=== PATIENT | female | born 1930 | race Asian ===

== ENCOUNTER 2017-11-13 09:27 | Emergency (ER) | payer OTHER ==
[~2017-11-13] VITALS: Ht 152.4 cm; Wt 59.0 kg
[~2017-11-13 09:27] MED LIST: ACET80TA PO; AMLO-512 PO; CALC-719 PO; DICL25 PO; ESOM20CA31 PO; ESOM40CA PO; MECL-111 PO; MELO-107 PO; ROSU20 PO; ZOLP10TA7 PO
[2017-11-13] MEDS ORDERED: IBUPROFEN 600 MG TABLET PO ONE (10:00)
[2017-11-13] MEDS ORDERED: CYCLOBENZAPRINE HCL 10 MG TABLET PO ONE (10:00)
[2017-11-13] MEDS ORDERED: HYDROCODONE/ACETAMINOPHEN 5-325 MG TABLET PO ONE (10:00)
[2017-11-13 12:03] VITALS: BP 142/68
== END 2017-11-13 12:06 | disposition home or self-care (01) ==
LOC: EMS 09:29
DX: M54.5 Low back pain (principal); I10 Essential (primary) hypertension; E78.00 Pure hypercholesterolemia, unspecified
CPT/HCPCS: 99284

== ENCOUNTER 2017-12-04 12:42 | Emergency (ER) | payer OTHER ==
[~2017-12-04] VITALS: Ht 152.4 cm; Wt 58.2 kg
[2017-12-04 12:58] LABS: GLUCOSE,POINT OF CARE 156 MG/DL (70-110)
[2017-12-04] MEDS ORDERED: ACETAMINOPHEN/CODEINE 300-30 MG TABLET PO ONE (15:30)
[2017-12-04 15:50] VITALS: BP 117/66
== END 2017-12-04 15:51 | disposition home or self-care (01) ==
LOC: EMS 12:44
DX: S22.089A Unspecified fracture of T11-T12 vertebra, initial encounter for closed fracture (principal); S32.018A Other fracture of first lumbar vertebra, initial encounter for closed fracture; I10 Essential (primary) hypertension; E78.00 Pure hypercholesterolemia, unspecified; M19.90 Unspecified osteoarthritis, unspecified site; M43.16 Spondylolisthesis, lumbar region; M48.04 Spinal stenosis, thoracic region; M48.05 Spinal stenosis, thoracolumbar region; M48.061 Spinal stenosis, lumbar region without neurogenic claudication; X50.0XXA Overexertion from strenuous movement or load, initial encounter; Y93.89 Activity, other specified; Y92.89 Other specified places as the place of occurrence of the external cause; Y99.8 Other external cause status
CPT/HCPCS: 72131; 82962; 99284

== ENCOUNTER 2018-05-16 11:31 | Emergency (ER) | payer OTHER ==
[~2018-05-16] VITALS: Ht 154.9 cm; Wt 54.5 kg
[2018-05-16] MEDS ORDERED: [UNRECOGNIZED DRUG - CODE] TP (11:45)
[2018-05-16] MEDS ORDERED: ASPI-556 PO (11:45)
[2018-05-16] MEDS ORDERED: SITA50 PO (11:45)
[2018-05-16] MEDS ORDERED: KETOROLAC TROMETHAMINE 30 MG/ML VIAL IM ONE (16:00)
[2018-05-16] MEDS ORDERED: AmLODIPine BESYLATE 5 MG TABLET PO ONE (17:15)
[2018-05-16 17:54] VITALS: BP 180/97
== END 2018-05-16 17:58 | disposition home or self-care (01) ==
LOC: EMS 11:31
DX: M48.54XA Collapsed vertebra, not elsewhere classified, thoracic region, initial encounter for fracture (principal); M19.90 Unspecified osteoarthritis, unspecified site; E78.00 Pure hypercholesterolemia, unspecified; I10 Essential (primary) hypertension; Z79.82 Long term (current) use of aspirin
CPT/HCPCS: 72131; 93005; 96372; 99284; J1885